=== PATIENT | female | born 1985 | race Caucasian/White ===

== ENCOUNTER 2023-08-05 08:34 | Emergency (ER) | payer OTHER ==
[~2023-08-05] VITALS: Ht 154.9 cm; Wt 65.0 kg
[~2023-08-05 08:34] MED LIST: IBU600 MG PO; ROXICODONE 55 MG/TAB PO
[2023-08-05 08:50] VITALS: TEMP 97.9
[2023-08-05] MEDS ORDERED: Ketorolac 60 MG/2 ML VIAL IM ONE (10:15)
[2023-08-05] MEDS ORDERED: MOTRIN 800800 MG/TAB PO (10:16)
[2023-08-05] MEDS ORDERED: FLEXERIL 1010 MG/TAB PO (10:16)
[2023-08-05] MEDS ORDERED: PERCOCET 325 MG1 TA2 PO (10:16)
[2023-08-05 10:23] VITALS: BP 116/78; PULSE 55
== END 2023-08-05 10:27 | disposition home or self-care (01) ==
LOC: COL.ER 08:34
DX: M54.16 Radiculopathy, lumbar region (principal); X50.0XXA Overexertion from strenuous movement or load, initial encounter; Y93.F2 Activity, caregiving, lifting
CPT/HCPCS: J1885